=== PATIENT | male | born 1975 | race Caucasian/White ===

== ENCOUNTER 2017-08-30 20:35 | Emergency (ER) | payer MEDICAID, OTHER ==
[~2017-08-30] VITALS: Ht 170.2 cm; Wt 120.2 kg
[~2017-08-30 20:35] MED LIST: IBUP-1958 PO
--- NOTE | 2017-08-30 22:05 | NUR ---
DR JAYNE MATAMOROS MD AT BEDSIDE FOR MSE.
--- NOTE | 2017-08-30 22:29 | NUR ---
Patient discharged to home in stable conditon. Written and verbal after care instructions given. Patient verbalizes understanding of instructions. Pt ambulated from ER w/ steady gait. No distress noted. Pt took all personal belongings.
[2017-08-30 22:31] VITALS: BP 132/84
== END 2017-08-30 22:31 | disposition home or self-care (01) ==
LOC: ER 20:40
DX: H00.021 Hordeolum internum right upper eyelid (principal); K14.0 Glossitis; G89.29 Other chronic pain; M54.9 Dorsalgia, unspecified; F17.200 Nicotine dependence, unspecified, uncomplicated; Z79.1 Long term (current) use of non-steroidal anti-inflammatories (NSAID)
CPT/HCPCS: 99283; A4663

== ENCOUNTER 2017-10-02 10:34 | Emergency (ER) | payer OTHER ==
[~2017-10-02] VITALS: Ht 170.2 cm; Wt 114.8 kg
== END 2017-10-02 11:00 | disposition home or self-care (01) ==
LOC: ER 10:34
DX: G89.29 Other chronic pain (principal); M54.9 Dorsalgia, unspecified; H01.006 Unspecified blepharitis left eye, unspecified eyelid; H01.001 Unspecified blepharitis right upper eyelid; F17.200 Nicotine dependence, unspecified, uncomplicated
CPT/HCPCS: A4663

== ENCOUNTER 2021-04-20 07:51 | Inpatient (IN) | payer OTHER ==
[~2021-04-20] VITALS: Ht 170.2 cm; Wt 131.5 kg
--- NOTE | 2021-04-20 08:10 | NUR ---
Dr Constantino at the bedside for MSE.
[2021-04-20] MEDS ORDERED: PANTOPRAZOLE SODIUM 40 MG TABLET.DR PO ONE ×2 (08:15→08:28)
[2021-04-20] MEDS ORDERED: MAG HYDROX/AL HYDROX/SIMETH 30 ML LIQUID UDC PO ONE (08:15)
[2021-04-20] MEDS ORDERED: LIDOCAINE VISCUS 2% 15 ML UDC MM ONE (08:15)
[2021-04-20 08:25] LABS: HEMATOCRIT 46.8 % (36.7-47.1); MEAN CORPUSCULAR HEMOGLOBIN 31.7 uug (23.8-33.4); MEAN CORPUSCULAR VOLUME 94.3 fL (73.0-96.2); PLATELET COUNT (AUTO) 282 K/uL (152-348)
[2021-04-20] MEDS ORDERED: LIDOCAINE VISCUS 2% 15 ML UDC ONE (08:27)
[2021-04-20] MEDS ORDERED: MAG HYDROX/AL HYDROX/SIMETH 30 ML LIQUID UDC ONE (08:28)
[2021-04-20 08:36] LABS: *BILIRUBIN,URIN NEGATIVE (NEGATIVE); *BLOOD, URINE NEGATIVE (NEGATIVE); *CLARITY,URINE CLEAR (CLEAR); *COLOR,URINE YELLOW (YELLOW); *KETONES,URINE 1+ (NEGATIVE); *UROBILINOGEN,URINE 0.2 E.U./dl (NORMAL); LEUKOCYTE ESTERASE ,URINE NEGATIVE (NEGATIVE); NITRITE, URINE NEGATIVE (NEGATIVE); PH,URINE 7.5 (5.0-8.0); UGLUCOSE NEGATIVE (NEGATIVE)
[2021-04-20 08:49] LABS: ALANINE AMINOTRANSFERASE 181 U/L (16-63); ALKALINE PHOSPHATASE 68 U/L (50-136); ASPARTATE AMINOTRANSFERASE 75 U/L (15-37); BILIRUBIN,DIRECT 0.2 mg/dL (0.0-0.2); BILIRUBIN,TOTAL 0.8 mg/dL (0.2-1.0); CARBON DIOXIDE 28 mmol/L (21-32); CHLORIDE 101 mmol/L (98-107); CREATININE 1.1 mg/dL (0.6-1.3); GLUCOSE 87 mg/dL (74-106); LIPASE 414 U/L (73-393); POTASSIUM 3.8 mmol/L (3.5-5.1); TOTAL PROTEIN, SERUM 7.1 g/dL (6.4-8.2); UREA NITROGEN, BLOOD 7 mg/dL (7-18)
[2021-04-20] MEDS ORDERED: IV NORMAL SALINE 250 ML IV ONE (09:13)
[2021-04-20] MEDS ORDERED: SWABABLE VALVE TRANSFER SET EA MC ONE (09:13)
[2021-04-20] MEDS ORDERED: IOHEXOL 350 100 ML INFUS..BTL ONE (09:13)
--- NOTE | 2021-04-20 09:21 | NUR ---
Pt signed consent for IV contrasted CT. Placed in the chart.
--- NOTE | 2021-04-20 09:22 | NUR ---
Pt out of ER for CT.
--- NOTE | 2021-04-20 09:40 | NUR ---
Pt back from CT, resting in bed.
[2021-04-20] MEDS ORDERED: LABETALOL HCL 100 MG/20 ML VIAL IV ONE (09:45)
[2021-04-20] MEDS ORDERED: LABETALOL HCL 100 MG/20 ML VIAL ONE (09:56)
[2021-04-20] MEDS ORDERED: ASPIRIN 325 MG TABLET PO ONE (10:30)
[2021-04-20] MEDS ORDERED: ASPIRIN 325 MG TABLET ONE (10:36)
--- NOTE | 2021-04-20 11:35 | NUR ---
SHILOH WEATHERS spoke to Staci Hathaway NP for tele admit.
--- NOTE | 2021-04-20 12:09 | NUR ---
Patient is resting comfortably in bed with eyes closed, NAD noted.
[2021-04-20] MEDS ORDERED: TEMAZEPAM 15 MG CAPSULE PO PRN (12:30)
[2021-04-20] MEDS ORDERED: ACETAMINOPHEN 325 MG TABLET PO PRN (12:30)
[2021-04-20] MEDS ORDERED: HYDROCODONE/APAP 10-325 MG TABLET PO PRN (12:30)
[2021-04-20] MEDS ORDERED: REMEDY ESSENTIAL ZINC PASTE 113 GM TP PRN (12:30)
[2021-04-20] MEDS ORDERED: ONDANSETRON 4 MG/2 ML VIAL IV PRN (12:30)
[2021-04-20] MEDS ORDERED: NITROGLYCERIN 0.4 MG/TAB BOTTLE SL PRN (12:30)
[2021-04-20] MEDS ORDERED: HYDROMORPHONE 1 MG/1 ML DISP.SYRIN IV PRN ×2 (12:30→18:15)
[2021-04-20] MEDS ORDERED: MAGNESIUM HYDROXIDE 30 ML LIQUID UDC PO PRN (12:30)
--- NOTE | 2021-04-20 12:50 | NUR ---
ADMITTED FROM HOME VIA ER A 45 Y.O MALE C/O ABDOMINAL PAIN X5 DAYS, ALERT AND ORIENTED X3, ABLE TO PARTICIPATE WELL ON ADMISSION ASSESSMENT. DENIES CHEST PAIN OR SOB UPON ARRIVAL IN ROOM , STILL C/O ANTERIOR LOWER ABDOMINAL PAIN, DENIES N/V. SR/ST ON MONITOR
[2021-04-20] MEDS ORDERED: BENA20TA9 PO (13:01)
--- NOTE | 2021-04-20 14:27 | NUR ---
SEEN BY HOSPITALIST UPON COMING UP IN ROOM SEE NOTES.
[2021-04-20 16:40] VITALS: BP 137/83
[2021-04-20] MEDS: BENAZEPRIL HCL 20 MG TABLET PO SCH (16:46)
--- NOTE | 2021-04-20 19:30 | NUR ---
Received pt awake, alert and orientedx4. Pt in no acute distress. Iv intact. Family at bedside. Safety and comfort provided. Will continue to monitor.
[2021-04-20 20:12] VITALS: BP 147/82
--- NOTE | 2021-04-20 23:07 | NUR ---
Notify environment coordinator regarding pt requesting for cpap . Pt stated he uses cpap for his obstructive sleep apnea at home. Gabo Hathaway Np ordered for pt to have cpap. RT notified.
--- NOTE | 2021-04-20 23:42 | NUR ---
Restoril prn given to pt for sleep as per pt request. Pt tolerated it well. Will continue to monitor.
--- NOTE | 2021-04-20 23:57 | NUR ---
PATIENT WEARS CPAP MACHINE AT HOME, WITH NASAL MASK OR PRONGS, PATIENT EXPLAINED WE ONLY HAVE FULL MASK TO WEAR, HE SAID HE WOULD TRY, PT PLACED ON CPAP MACHINE WITH 8CM, WITH XL MASK, X 5 MINS, SAID HE GETS ANXIOUS AND SLIGHTLY INCREASE WORK OF BREATHING WITH MASK, HE SAID HE CANT WEAR IT NOW, RT SUGGEST THAT PATIENTS BRINGS HIS OWN MASK FROM HOME, SAT 96% ON ROOM AIR, NURSE NOTIFIED .Shi STEEN RCP Addendum: 04/21/21 at 0000 by SKYLER STEEN RT Amended: Links added.
[2021-04-21 00:53] VITALS: BP 112/55
[2021-04-21 04:12] VITALS: BP 103/60
--- NOTE | 2021-04-21 05:38 | NUR ---
Pt slept intermittently. Pt in no acute distress. Iv intact. Pt vital signs within normal limit. Pt on sinus rhythm.Safety and comfort provided.All needs are ,et. Will endorse to incoming nurse for continuity of care.
[2021-04-21 06:46] LABS: HEMATOCRIT 46.7 % (36.7-47.1); MEAN CORPUSCULAR VOLUME 94.8 fL (73.0-96.2); PLATELET COUNT (AUTO) 282 K/uL (152-348)
[2021-04-21] MEDS ORDERED: PANTOPRAZOLE SODIUM 40 MG TABLET.DR PO SCH (07:00)
--- NOTE | 2021-04-21 07:40 | NUR ---
Received awake sitting at edge of bed oriented x4. Denies pain or sob. Stated he's not used to sleeping away from home due to needs his own pillows and bed. No acute distress. No signs of infiltration on Iv site. Patient is comfortable. Safety maintained. Call light in reach.
[2021-04-21 08:00] LABS: CREATININE 1.1 mg/dL (0.6-1.3); MAGNESIUM 2.2 mg/dL (1.8-2.4); PHOSPHOROUS 3.3 mg/dL (2.5-4.9); POTASSIUM 3.5 mmol/L (3.5-5.1)
[2021-04-21 08:34] VITALS: BP 102/49
[2021-04-21] MEDS: BENAZEPRIL HCL 20 MG TABLET PO SCH (08:38)
[2021-04-21 08:49] LABS: THYROID STIMULATING HORMONE 1.043 mIU/mL (0.358-3.740)
[2021-04-21] MEDS ORDERED: ASPIRIN EC 81 MG TABLET.DR PO SCH (09:00)
[2021-04-21] MEDS ORDERED: PANT40TA2 PO (10:15)
[2021-04-21 12:00] VITALS: BP 119/72
--- NOTE | 2021-04-21 13:23 | NUR ---
Patient's family has all his medications and verified with Ortega at pharmacy no meds at pharmacy.
--- NOTE | 2021-04-21 13:50 | NUR ---
Discharge instructions relayed to the patient verbalized understanding. Iv removed no bleeding noted. Denies sob or chest pain.
--- NOTE | 2021-04-21 14:15 | NUR ---
Discharge to home via private car in stable condition.
== END 2021-04-21 14:15 | disposition home or self-care (01) | DRG 190 ==
LOC: ER 07:55 → TELE3 12:45 → MEDSURG3 04-21 11:00
PROVIDERS: ADMIT Nurse Practitioner Acute Care; ATTEND Nurse Practitioner Acute Care
DX: I25.10 Atherosclerotic heart disease of native coronary artery without angina pectoris (principal); I21.A1 Myocardial infarction type 2; K85.90 Acute pancreatitis without necrosis or infection, unspecified; I11.9 Hypertensive heart disease without heart failure; K26.9 Duodenal ulcer, unspecified as acute or chronic, without hemorrhage or perforation; E78.5 Hyperlipidemia, unspecified; F17.210 Nicotine dependence, cigarettes, uncomplicated; E66.01 Morbid (severe) obesity due to excess calories; Z68.42 Body mass index [BMI] 45.0-49.9, adult; Z20.822 Contact with and (suspected) exposure to COVID-19; G89.29 Other chronic pain; M54.9 Dorsalgia, unspecified
CPT/HCPCS: 36415; 71045; 71275; 73080; 83690; 83735; 84100; 84443; 84484; 85025; 93005; 94660; A4663; G0378; J1170; J3490; J7050; Q9967

== ENCOUNTER 2021-04-26 07:32 | Inpatient (IN) | payer OTHER ==
[~2021-04-26] VITALS: Ht 170.2 cm; Wt 129.3 kg
[~2021-04-26 07:32] MED LIST changes: +BENA20TA9 PO; -IBUP-1958 PO; +PANT40TA2 PO
--- NOTE | 2021-04-26 07:54 | NUR ---
Pending MD evaluation, patient is AOX4, calm & breathing easily, NAD, c/o abdominal pains, skin warm & dry.
--- NOTE | 2021-04-26 07:56 | NUR ---
MD@bedside, medical screening exam in progress
--- NOTE | 2021-04-26 08:10 | NUR ---
lead maintenance technician called 08:09am
[2021-04-26 08:29] LABS: MEAN CORPUSCULAR HEMOGLOBIN 31.4 uug (23.8-33.4); MEAN CORPUSCULAR VOLUME 93.5 fL (73.0-96.2); PLATELET COUNT (AUTO) 296 K/uL (152-348)
[2021-04-26 08:30] LABS: CARBON DIOXIDE 27 mmol/L (21-32); CHLORIDE 98 mmol/L (98-107); CREATININE 1.1 mg/dL (0.6-1.3); GLUCOSE 89 mg/dL (74-106); POTASSIUM 3.9 mmol/L (3.5-5.1); UREA NITROGEN, BLOOD 7 mg/dL (7-18)
[2021-04-26 08:39] LABS: ALANINE AMINOTRANSFERASE 236 U/L (16-63); ALKALINE PHOSPHATASE 66 U/L (50-136); ASPARTATE AMINOTRANSFERASE 78 U/L (15-37); BILIRUBIN,DIRECT 0.2 mg/dL (0.0-0.2); BILIRUBIN,TOTAL 0.8 mg/dL (0.2-1.0); TOTAL PROTEIN, SERUM 7.3 g/dL (6.4-8.2)
[2021-04-26 08:40] LABS: LIPASE 1689 U/L (73-393)
[2021-04-26 09:20] LABS: *BILIRUBIN,URIN NEGATIVE (NEGATIVE); *BLOOD, URINE NEGATIVE (NEGATIVE); *CLARITY,URINE CLEAR (CLEAR); *COLOR,URINE YELLOW (YELLOW); *KETONES,URINE 1+ (NEGATIVE); *UROBILINOGEN,URINE 0.2 E.U./dl (NORMAL); LEUKOCYTE ESTERASE ,URINE NEGATIVE (NEGATIVE); NITRITE, URINE NEGATIVE (NEGATIVE); UGLUCOSE NEGATIVE (NEGATIVE)
[2021-04-26] MEDS ORDERED: METOCLOPRAMIDE HCL 10 MG/2 ML VIAL IV ONE (09:30)
[2021-04-26] MEDS ORDERED: KETOROLAC TROMETHAMINE 15 MG INJ IVP ONE (09:30)
[2021-04-26] MEDS ORDERED: METOCLOPRAMIDE HCL 10 MG/2 ML VIAL ONE (09:38)
[2021-04-26] MEDS ORDERED: KETOROLAC TROMETHAMINE 15 MG INJ ONE (09:38)
[2021-04-26 09:39] LABS: BACTERIA,URINE NONE SEEN /HPF (NONE SEEN); RBC,URINE NONE SEEN /HPF (0-3); SQUAMOUS EPITHELIAL CELL,UR NONE SEEN /HPF (NONE SEEN); WBC,URINE NONE SEEN /HPF (0-3)
[2021-04-26] MEDS ORDERED: IV NORMAL SALINE 250 ML IV ONE (09:48)
[2021-04-26] MEDS ORDERED: SWABABLE VALVE TRANSFER SET EA MC ONE (09:48)
[2021-04-26] MEDS ORDERED: IOHEXOL 300MG/ML 100 ML INFUS..BTL ONE (09:48)
--- NOTE | 2021-04-26 09:53 | NUR ---
Patient ambulated to bathroom 2x with steady gait.
--- NOTE | 2021-04-26 10:33 | NUR ---
Patient is resting comfortably on gurney with eyes closed. Patient reported marked decreased in abdominal pains expressed, about 1/10 pain scale@this time.
--- NOTE | 2021-04-26 10:57 | NUR ---
MD@bedside discussing plan of care with patient.
--- NOTE | 2021-04-26 11:04 | NUR ---
ER registration/admitting staff Luz Elena notified re: plan to admit
[2021-04-26] MEDS ORDERED: DEXAMETHASONE SOD PHOSPHATE 4 MG INJ ONE (11:25)
[2021-04-26] MEDS ORDERED: ONDANSETRON 4 MG/2 ML VIAL ONE ×2 (11:25→12:14)
[2021-04-26] MEDS ORDERED: GLYCOPYRROLATE 0.2 MG/ML VIAL ONE ×3 (11:25)
[2021-04-26] MEDS ORDERED: CEFAZOLIN 1 G VIAL ONE ×2 (11:25)
[2021-04-26] MEDS ORDERED: SUCCINYLCHOLINE CHLORIDE 200 MG/10 ML VIAL ONE (11:25)
[2021-04-26] MEDS ORDERED: LIDOCAINE-MPF 2% 5 ML VIAL ONE (11:25)
[2021-04-26] MEDS ORDERED: NEOSTIGMINE METHYLSULFATE 10 MG/10 ML VIAL ONE (11:25)
[2021-04-26] MEDS ORDERED: PROPOFOL 200 MG/20 ML BOTTLE ONE ×2 (11:25)
--- NOTE | 2021-04-26 11:41 | NUR ---
Informed MD RE latest vitals BP-171/110 AL-68 RR-19 T-98 SPO2-98% RA PA-09/17
[2021-04-26] MEDS ORDERED: MORPHINE SULFATE 4 MG/1 ML DISP.SYRIN IV ONE (11:45)
[2021-04-26] MEDS ORDERED: ONDANSETRON 4 MG/2 ML VIAL IV ONE (11:45)
[2021-04-26] MEDS ORDERED: hydrALAZINE HCL 20 MG/1 ML VIAL IV ONE (11:45)
[2021-04-26] MEDS ORDERED: MORPHINE SULFATE 4 MG/1 ML DISP.SYRIN ONE (12:11)
[2021-04-26] MEDS ORDERED: hydrALAZINE HCL 20 MG/1 ML VIAL ONE (12:11)
--- NOTE | 2021-04-26 12:30 | NUR ---
"OK to admit." per ER registration/admitting staff Luz Elena said. notified.
--- NOTE | 2021-04-26 13:20 | NUR ---
Patient admitted to 3RD FLOOR room 304 , under care of Dr. Mariusz Rain .Belongings List completed. MRSA swab collected.
--- NOTE | 2021-04-26 13:30 | NUR ---
Patient admitted to room 304 .vs are stable call light with in reach pt isaxox4 md notified for the admission orders
[2021-04-26 13:41] VITALS: BP 132/83
[2021-04-26] MEDS ORDERED: ONDANSETRON 4 MG/2 ML VIAL IV PRN (14:15)
[2021-04-26] MEDS: IV NS 1000 ML 1,000 ML IV PRN ×2 (14:51→20:45)
[2021-04-26] MEDS: PIPERACILLIN SODIUM/TAZOBACTAM 3.375 G in IV DEXTROSE 5% 100 ML IV SCH ×2 (14:59→23:50)
[2021-04-26] MEDS ORDERED: PIPERACILLIN SODIUM/TAZOBACTAM 4.5 G in IV DEXTROSE 5% 50 ML IV SCH (15:00)
[2021-04-26] MEDS: MORPHINE SULFATE 2 MG/1 ML DISP.SYRIN IV PRN ×2 (15:35→20:45)
[2021-04-26 16:09] VITALS: BP 146/87
[2021-04-26 20:14] VITALS: BP 138/69
[2021-04-27] MEDS: MORPHINE SULFATE 2 MG/1 ML DISP.SYRIN IV PRN ×4 (01:56→21:09)
[2021-04-27 04:20] VITALS: BP 158/84
--- NOTE | 2021-04-27 06:02 | NUR ---
Slept intermittently with CPAP in place. Able to make needs known. C/o abd pain periodically that is relieved by Morphine. IV site intact. Comfort maintained throughout shift, will endorse to day shift.
[2021-04-27] MEDS: PANTOPRAZOLE SODIUM 40 MG VIAL IV SCH (06:17)
[2021-04-27] MEDS: PIPERACILLIN SODIUM/TAZOBACTAM 3.375 G in IV DEXTROSE 5% 100 ML IV SCH ×3 (06:17→23:46)
[2021-04-27 06:37] LABS: HEMATOCRIT 46.2 % (36.7-47.1); MEAN CORPUSCULAR HEMOGLOBIN 31.1 uug (23.8-33.4); MEAN CORPUSCULAR VOLUME 93.9 fL (73.0-96.2); PLATELET COUNT (AUTO) 285 K/uL (152-348)
[2021-04-27] MEDS: IV NS 1000 ML 1,000 ML IV PRN ×2 (06:48→14:17)
[2021-04-27 06:56] LABS: CREATININE 1.1 mg/dL (0.6-1.3); MAGNESIUM 1.9 mg/dL (1.8-2.4); PHOSPHOROUS 3.1 mg/dL (2.5-4.9); POTASSIUM 3.8 mmol/L (3.5-5.1)
[2021-04-27 07:02] LABS: THYROID STIMULATING HORMONE 0.774 mIU/mL (0.358-3.740)
[2021-04-27 11:49] VITALS: BP 151/86
[2021-04-27 15:59] VITALS: BP 141/68
[2021-04-27 20:03] VITALS: BP 153/93
[2021-04-28] MEDS: IV NS 1000 ML 1,000 ML IV PRN ×4 (01:00→18:45)
[2021-04-28] MEDS: MORPHINE SULFATE 2 MG/1 ML DISP.SYRIN IV PRN ×3 (01:55→20:26)
[2021-04-28 04:03] VITALS: BP 155/85
[2021-04-28 04:22] LABS: HEMATOCRIT 47.2 % (36.7-47.1); MEAN CORPUSCULAR HEMOGLOBIN 31.1 uug (23.8-33.4); MEAN CORPUSCULAR VOLUME 92.9 fL (73.0-96.2); PLATELET COUNT (AUTO) 288 K/uL (152-348)
[2021-04-28 04:33] LABS: BILIRUBIN,TOTAL 0.7 mg/dL (0.2-1.0); PHOSPHOROUS 3.4 mg/dL (2.5-4.9); POTASSIUM 3.7 mmol/L (3.5-5.1); TOTAL PROTEIN, SERUM 6.9 g/dL (6.4-8.2)
[2021-04-28] MEDS: PIPERACILLIN SODIUM/TAZOBACTAM 3.375 G in IV DEXTROSE 5% 100 ML IV SCH ×3 (06:14→22:46)
[2021-04-28] MEDS: PANTOPRAZOLE SODIUM 40 MG VIAL IV SCH (06:14)
--- NOTE | 2021-04-28 07:11 | NUR ---
Slept well. CPAP in place, tolerates well. C?O abdominal pain, Morphine 2mg IV provided as ordered PRN. IV NS infusing to left FA IV at 20cc/hr. Zosyn IV continued, no adverse reaction. Teaching provided on lap cholecystectomy. Is able to ambulate to use toilet. All needs attended.
[2021-04-28 11:41] VITALS: BP 151/90
[2021-04-28 16:13] VITALS: BP 168/74
[2021-04-28 20:00] VITALS: BP 158/80
[2021-04-28] MEDS: ZOLPIDEM 5 MG TABLET PO PRN (22:59)
[2021-04-29 04:00] VITALS: BP 155/75
[2021-04-29] MEDS ORDERED: MORPHINE SULFATE 2 MG/1 ML DISP.SYRIN ONE (04:52)
[2021-04-29] MEDS: MORPHINE SULFATE 2 MG/1 ML DISP.SYRIN IV PRN (04:58)
[2021-04-29] MEDS: IV NS 1000 ML 1,000 ML IV PRN ×2 (05:00)
--- NOTE | 2021-04-29 05:20 | NUR ---
Patient slept well. Continues to have pain to mid abdomen, Morphine 2mg provided as needed. Sharee provided PRN for sleep aid.- effective. Patient NPO this shift.
[2021-04-29] MEDS: PANTOPRAZOLE SODIUM 40 MG VIAL IV SCH (06:08)
[2021-04-29] MEDS: PIPERACILLIN SODIUM/TAZOBACTAM 3.375 G in IV DEXTROSE 5% 100 ML IV SCH ×3 (06:08→22:07)
[2021-04-29 06:23] LABS: HEMATOCRIT 46.7 % (36.7-47.1); MEAN CORPUSCULAR HEMOGLOBIN 30.9 uug (23.8-33.4); MEAN CORPUSCULAR VOLUME 93.1 fL (73.0-96.2); PLATELET COUNT (AUTO) 286 K/uL (152-348)
[2021-04-29 06:38] LABS: BILIRUBIN,TOTAL 0.8 mg/dL (0.2-1.0); CREATININE 0.9 mg/dL (0.6-1.3); MAGNESIUM 1.9 mg/dL (1.8-2.4); POTASSIUM 3.9 mmol/L (3.5-5.1); TOTAL PROTEIN, SERUM 6.8 g/dL (6.4-8.2)
[2021-04-29] MEDS ORDERED: BUPIVACAINE/EPI PF 0.25% 30 ML VIAL ONE (06:59)
[2021-04-29] MEDS ORDERED: LIDOCAINE HCL 1% 20 ML VIAL ONE (06:59)
--- NOTE | 2021-04-29 08:06 | NUR ---
PT WENT TO OR VIA BED FOR SURGERY
[2021-04-29] MEDS ORDERED: FENTANYL CITRATE 250 MCG/5 ML AMPUL ONE (08:44)
[2021-04-29] MEDS ORDERED: MIDAZOLAM HCL 2 MG/2 ML VIAL ONE (08:44)
[2021-04-29] MEDS ORDERED: ROCURONIUM BROMIDE 50 MG/5 ML VIAL ONE (08:44)
[2021-04-29] MEDS ORDERED: HYDROMORPHONE 1 MG/1 ML DISP.SYRIN ONE (10:58)
[2021-04-29] MEDS ORDERED: KETOROLAC TROMETHAMINE 30 MG INJ ONE (10:59)
--- NOTE | 2021-04-29 12:00 | NUR ---
pt received from recovery room via bed in stable condition.vs are stable call light with in reach
[2021-04-29] MEDS: IV LACTATED RINGERS SOLUTION 1,000 ML IV PRN ×2 (12:27→22:13)
[2021-04-29] MEDS: GABAPENTIN 300 MG CAPSULE PO SCH ×2 (13:29→21:32)
[2021-04-29] MEDS: IBUPROFEN 800 MG TABLET PO SCH ×2 (13:29→21:32)
[2021-04-29] MEDS: ACETAMINOPHEN 325 MG TABLET PO SCH ×2 (13:29→21:32)
[2021-04-29 16:00] VITALS: BP 118/73
--- NOTE | 2021-04-29 19:30 | NUR ---
Received pt awake,alert and orientedx4. at bedside.Iv intact. Pt in no acute distress. Safety and comfort provided. Will continue to monitor.
[2021-04-29 19:58] VITALS: BP 146/84
[2021-04-29] MEDS: ZOLPIDEM 5 MG TABLET PO PRN (22:13)
[2021-04-30] MEDS: MORPHINE SULFATE 2 MG/1 ML DISP.SYRIN IV PRN (01:07)
--- NOTE | 2021-04-30 02:02 | NUR ---
PATIENT BACK ON CPAP MACHINE 23:10 - WITH HIS OWN NASAL PILLOWS FOR UNDER NOSE, CPAP 10, FIO2N@ 28%, DOING WELL. Shi STEEN RCP Addendum: 04/30/21 at 0203 by SKYLER STEEN RT Amended: Links added.
[2021-04-30 04:00] VITALS: BP 119/70
[2021-04-30] MEDS: GABAPENTIN 300 MG CAPSULE PO SCH ×3 (05:43→20:17)
[2021-04-30] MEDS: IBUPROFEN 800 MG TABLET PO SCH (05:43)
[2021-04-30] MEDS: ACETAMINOPHEN 325 MG TABLET PO SCH ×3 (05:43→20:17)
[2021-04-30] MEDS: PANTOPRAZOLE SODIUM 40 MG VIAL IV SCH (06:08)
[2021-04-30] MEDS: PIPERACILLIN SODIUM/TAZOBACTAM 3.375 G in IV DEXTROSE 5% 100 ML IV SCH ×2 (06:08→14:25)
--- NOTE | 2021-04-30 06:25 | NUR ---
Pt slept intermittently. Pt in no acute distress. . Iv intact. Prescribed medication given and pt tolerated it well. PT abdominal dressing sites intact , clean and dry. Safety and comfort provided. All needs are met. Vital signs within normal limit. Will endorse to incoming nurse for continuity of care.
--- NOTE | 2021-04-30 07:35 | NUR ---
Received patient report from PM nurse. Arrived to patient's room sleeping comfortably. IV site intact with bed in lowest position. Patient states there is no pain but question about discharge from facility. Will follow up with Dr. Campos regarding patient's discharge.
[2021-04-30 08:43] LABS: HEMATOCRIT 44.1 % (36.7-47.1); MEAN CORPUSCULAR HEMOGLOBIN 30.7 uug (23.8-33.4); MEAN CORPUSCULAR VOLUME 92.8 fL (73.0-96.2); PLATELET COUNT (AUTO) 294 K/uL (152-348)
[2021-04-30 08:54] LABS: CREATININE 1.3 mg/dL (0.6-1.3); MAGNESIUM 1.8 mg/dL (1.8-2.4); PHOSPHOROUS 3.7 mg/dL (2.5-4.9); POTASSIUM 4.1 mmol/L (3.5-5.1); TOTAL PROTEIN, SERUM 6.4 g/dL (6.4-8.2)
[2021-04-30 11:11] VITALS: BP 135/81
--- NOTE | 2021-04-30 11:42 | NUR ---
Dressing change and clean done to patient's tahira on abdomen.
[2021-04-30 16:09] VITALS: BP 159/101
--- NOTE | 2021-04-30 16:15 | NUR ---
Patient's IV line infiltrated. Attempted to start new line but unsuccessful. Spoke to Dr. Campos regarding possible midline insertion. Dr. Campos recommends Keflex PO. Order placed for Keflex 500mg PO q8h for 4 days.
--- NOTE | 2021-04-30 19:41 | NUR ---
Received patient sitting in the chair. AAOx4. In no apparent distress. Denies any pain or SOB. Encourage to use incentive spirometer at bedside. Dressing on surgical site intact, dry and clean. Needs assessed and attended to. Safety measure initiated and call light within reached.
[2021-04-30 19:51] VITALS: BP 162/99
[2021-04-30] MEDS: BENAZEPRIL HCL 20 MG TABLET PO SCH (20:13)
--- NOTE | 2021-04-30 20:29 | NUR ---
Patient with no IV present. Placed IV on left AC #20G.
[2021-04-30] MEDS ORDERED: ATORVASTATIN 20 MG TABLET PO SCH (21:00)
[2021-04-30] MEDS: CEphaleXIN 500 MG CAPSULE PO SCH (21:06)
[2021-05-01] MEDS: MORPHINE SULFATE 2 MG/1 ML DISP.SYRIN IV PRN (03:00)
[2021-05-01 04:17] VITALS: BP 162/93
[2021-05-01 05:10] VITALS: BP 118/60
[2021-05-01] MEDS: CEphaleXIN 500 MG CAPSULE PO SCH ×2 (05:33→13:16)
[2021-05-01] MEDS: GABAPENTIN 300 MG CAPSULE PO SCH ×2 (05:33→13:16)
[2021-05-01] MEDS: ACETAMINOPHEN 325 MG TABLET PO SCH ×2 (05:33→13:16)
[2021-05-01] MEDS: PANTOPRAZOLE SODIUM 40 MG VIAL IV SCH (06:08)
[2021-05-01 06:28] VITALS: BP 159/90
--- NOTE | 2021-05-01 06:33 | NUR ---
AAOx4. In no apparent distress. Denies any SOB. CPAP used during the night. Morphine 2mg given via IV for complain of pain on surgical site and effective. Surgical site with dressing clean and dry. IV site on left AC intact and patent. No adverse effect noted from PO antibiotic. Needs attended to and met. Safety measure maintained and call light within reached.
[2021-05-01] MEDS: BENAZEPRIL HCL 20 MG TABLET PO SCH (09:00)
[2021-05-01] MEDS ORDERED: VALSARTAN 80 MG TABLET PO SCH (09:30)
[2021-05-01 11:46] VITALS: BP 102/43
[2021-05-01] MEDS ORDERED: BENA20TA9 PO (14:21)
[2021-05-01] MEDS ORDERED: CEPH500C2 PO (14:21)
[2021-05-01] MEDS ORDERED: ATOR20TA PO (14:21)
--- NOTE | 2021-05-01 15:35 | NUR ---
Patient discharged from unit at 1530. IV site removed. ID band removed. Discharge education provided to patient and patient's sister.
[2021-05-02] MEDS ORDERED: PANTOPRAZOLE SODIUM 40 MG TABLET.DR PO SCH (07:00)
== END 2021-05-01 15:30 | disposition home or self-care (01) | DRG 263 ==
LOC: ER 07:35 → MEDSURG3 13:24
PROVIDERS: ATTEND Internal Medicine
PROC: 0FT44ZZ Resection of Gallbladder, Percutaneous Endoscopic Approach (ICD-10-PCS; principal; 2021-04-29)
DX: K85.10 Biliary acute pancreatitis without necrosis or infection (principal); K80.00 Calculus of gallbladder with acute cholecystitis without obstruction; E78.5 Hyperlipidemia, unspecified; E66.01 Morbid (severe) obesity due to excess calories; F17.210 Nicotine dependence, cigarettes, uncomplicated; Z68.41 Body mass index [BMI] 40.0-44.9, adult; K66.0 Peritoneal adhesions (postprocedural) (postinfection); I10 Essential (primary) hypertension; M77.8 Other enthesopathies, not elsewhere classified; R77.8 Other specified abnormalities of plasma proteins; I51.7 Cardiomegaly; K86.1 Other chronic pancreatitis; G89.29 Other chronic pain
CPT/HCPCS: 36415; 83690; 83735; 84100; 84443; 84484; 85025; 85730; 93005; 94660; 94760; A4663; C9113; G0378; J0330; J0360; J0690; J1100; J1170; J1885; J2250; J2270; J2405; J2543; J2765; J3010; J3490; J7030; J7040; J7050; J7060; J7070; Q9967

== ENCOUNTER 2021-08-06 12:35 | Emergency (ER) | payer OTHER ==
[~2021-08-06] VITALS: Ht 170.2 cm; Wt 113.4 kg
[~2021-08-06 12:35] MED LIST changes: +ATOR20TA PO; +CEPH500C2 PO
[2021-08-06] MEDS ORDERED: NEOMY/BACITRA/POLYMYXIN B OINT UD PACKET TP ONE (12:52)
--- NOTE | 2021-08-06 13:00 | NUR ---
Pt lynn to room 2a by triage. Pt placed on gurney in pos of comfort, connected to monitor and initial VSS, Pt NSR with inverted t and poss slighty ST depression. Pt denies any pain, sob, or emesis, pt states that he feels dizzy and was mildly nauseated earlier. Pt has good distal pulses x4ext with good muscle tone and strength, pt works out alot and is considered buff. lungs ctab, no trach dev, no jvd, no dental caries or lesions, PERRLA, NAD, Pt states that he felt "weird" all day long, and his employer sent him home, but he says hes feeling much better now. wants to go home.
--- NOTE | 2021-08-06 13:05 | NUR ---
EDMD at bedside for eval of pt condition. 1 L NS IV fluid ordered along with some fluids. IV initiated and fluid NS bolus started
[2021-08-06] MEDS ORDERED: IV NORMAL SALINE 1000 ML BAG IV ONE (13:15)
--- NOTE | 2021-08-06 13:20 | NUR ---
XRtech at bedside for PCXR
[2021-08-06 13:58] LABS: MEAN CORPUSCULAR HEMOGLOBIN 28.2 uug (23.8-33.4); MEAN CORPUSCULAR VOLUME 82.8 fL (73.0-96.2); PLATELET COUNT (AUTO) 257 K/uL (152-348)
[2021-08-06 14:13] LABS: CARBON DIOXIDE 31 mmol/L (21-32); CHLORIDE 100 mmol/L (98-107); CREATININE 1.1 mg/dL (0.6-1.3); GLUCOSE 96 mg/dL (74-106); POTASSIUM 3.4 mmol/L (3.5-5.1); UREA NITROGEN, BLOOD 12 mg/dL (7-18)
[2021-08-06] MEDS ORDERED: IV NS 1000 ML 1,000 ML IV ONE (14:15)
[2021-08-06 15:18] LABS: *BILIRUBIN,URIN NEGATIVE (NEGATIVE); *BLOOD, URINE TRACE (NEGATIVE); *CLARITY,URINE CLEAR (CLEAR); *COLOR,URINE YELLOW (YELLOW); *KETONES,URINE NEGATIVE (NEGATIVE); *UROBILINOGEN,URINE 0.2 E.U./dl (NORMAL); LEUKOCYTE ESTERASE ,URINE 2+ (NEGATIVE); NITRITE, URINE NEGATIVE (NEGATIVE); PH,URINE 7.5 (5.0-8.0); UGLUCOSE NEGATIVE (NEGATIVE)
--- NOTE | 2021-08-06 15:30 | NUR ---
EDMD at bedside to discuss findings and pt dispo with pt.
[2021-08-06 15:35] LABS: *AMPHETAMINE, URINE NEGATIVE (NEGATIVE); *CANNABINOID, URINE NEGATIVE (NEGATIVE); *COCCAINE, URINE NEGATIVE (NEGATIVE); *OPIATE, URINE NEGATIVE (NEGATIVE); *PHENCYCLIDINE SCREEN,URINE NEGATIVE (NEGATIVE)
--- NOTE | 2021-08-06 15:45 | NUR ---
Pt given DC instructions and pt confirmed understanding of aftercare. all questions answered, IV removed and site dressed with 4x4s and tape. 1L NS bolus completed pt tolerated well. States he feels much better and wants to go home. EDMD went to bedside to discuss with pt since 1 more Liter of NS was ordered and about to be hung. Pt states that hell just go buy a huge bottle of gatoraid and drink it PO. Pt states that he has a previous engagement. EDMD agreed to prepare DC paperwork for pt dc home. VSS, PE WNL, NAD. No ns/sxof distress present.
[2021-08-06 17:00] LABS: BACTERIA,URINE MODERATE /HPF (NONE SEEN); SQUAMOUS EPITHELIAL CELL,UR FEW /HPF (NONE SEEN); WBC,URINE 50-80 /HPF (0-3)
[2021-08-06 20:29] VITALS: BP 128/82
== END 2021-08-06 15:45 | disposition home or self-care (01) ==
LOC: ER 12:35
DX: E86.0 Dehydration (principal); I10 Essential (primary) hypertension; G89.29 Other chronic pain; M54.9 Dorsalgia, unspecified; Z79.899 Other long term (current) drug therapy
CPT/HCPCS: 36415; 71045; 80048; 80307; 81001; 84484; 85025; 85730; 87077; 87086; 87186; 93005; 96360; 96361; 99285; J7040; A4663

== ENCOUNTER 2023-03-06 20:31 | Emergency (ER) | payer OTHER ==
[~2023-03-06] VITALS: Ht 170.2 cm; Wt 115.7 kg
[~2023-03-06 20:31] MED LIST changes: -CEPH500C2 PO; -PANT40TA2 PO
[2023-03-06] MEDS ORDERED: CLOT15CR5 TP (21:07)
[2023-03-06] MEDS ORDERED: DOXY-326 PO (21:07)
[2023-03-06 21:17] VITALS: BP 151/104; O2SAT 97
== END 2023-03-06 21:17 | disposition home or self-care (01) ==
LOC: ER 20:31
DX: L30.4 Erythema intertrigo (principal); L73.9 Follicular disorder, unspecified; I10 Essential (primary) hypertension; E78.5 Hyperlipidemia, unspecified; F17.200 Nicotine dependence, unspecified, uncomplicated; Z79.899 Other long term (current) drug therapy; Z60.2 Problems related to living alone
CPT/HCPCS: A4606; A4663

== ENCOUNTER 2023-03-19 21:16 | Emergency (ER) | payer OTHER ==
[~2023-03-19] VITALS: Ht 170.2 cm; Wt 115.7 kg
[~2023-03-19 21:16] MED LIST changes: +CLOT15CR5 TP; +DOXY-326 PO
[2023-03-19] MEDS ORDERED: CLOT15CR27 TP (21:45)
[2023-03-19] MEDS ORDERED: SULF1TAB48 PO (21:45)
[2023-03-19] MEDS ORDERED: SULFAMETH/TRIMETH 800/160 MG TABLET ONE (21:50)
[2023-03-19 21:52] VITALS: BP 162/95; O2SAT 96
[2023-03-19] MEDS: SULFAMETH/TRIMETH 800/160 MG TABLET PO ONE (21:52)
== END 2023-03-19 21:53 | disposition home or self-care (01) ==
LOC: ER 21:18
DX: L30.4 Erythema intertrigo (principal); E78.5 Hyperlipidemia, unspecified; F17.200 Nicotine dependence, unspecified, uncomplicated; Z79.899 Other long term (current) drug therapy
CPT/HCPCS: A4606; A4663

== ENCOUNTER 2023-06-16 12:54 | Emergency (ER) | payer OTHER ==
[~2023-06-16] VITALS: Ht 170.2 cm; Wt 113.4 kg
[~2023-06-16 12:54] MED LIST changes: +CLOT15CR27 TP; +IBUP-1953 PO; +SULF1TAB48 PO; +TRAM50TA2 PO
[2023-06-16 15:29] LABS: BASOPHILS % (AUTO) 0.3 % (0.0-2.0); DIFFERENTIAL COMMENT 0; EOSINOPHILS % (AUTO) 0.1 % (0.0-7.0); HEMATOCRIT 47.8 % (36.7-47.1); HEMOGLOBIN 17.2 g/dL (12.5-16.3); LYMPHOCYTES # (AUTO) 0.2 K/uL (0.8-4.8); LYMPHOCYTES % (AUTO) 2.4 % (20.5-51.5); MEAN CORPUSCULAR HEMOGLOBIN 32.7 uug (23.8-33.4); MEAN CORPUSCULAR HGB CONC 36 g/dL (32.5-36.3); MEAN CORPUSCULAR VOLUME 91.1 fL (73.0-96.2); MONOCYTES # (AUTO) 0.2 K/uL (0.1-1.30); MONOCYTES % (AUTO) 2.4 % (0.0-11.0); NEUTROPHILS % (AUTO) 94.8 % (38.5-71.5); PLATELET COUNT (AUTO) 196 K/uL (152-348); RED BLOOD CELL COUNT(AUTO) 5.25 MIL/uL (4.06-5.63); RED CELL DISTRIBUTION WIDTH 13.8 % (12.1-16.2); WHITE BLOOD COUNT (AUTO) 9.5 K/uL (3.6-10.2)
[2023-06-16 15:32] LABS: CALCIUM 8.5 mg/dL (8.5-10.1); CREATININE 1.1 mg/dL (0.6-1.3); POTASSIUM 3.2 mmol/L (3.5-5.1)
[2023-06-16 15:38] LABS: ALBUMIN 3.9 g/dL (3.4-5.0); BILIRUBIN,DIRECT 0.1 mg/dL (0.0-0.2); BILIRUBIN,TOTAL 0.8 mg/dL (0.2-1.0); TOTAL PROTEIN, SERUM 7.9 g/dL (6.4-8.2)
[2023-06-16] MEDS ORDERED: ONDANSETRON 4 MG/2 ML VIAL ONE (15:49)
[2023-06-16] MEDS: ONDANSETRON 4 MG/2 ML VIAL IV ONE (15:52)
[2023-06-16] MEDS: IV NORMAL SALINE 1000 ML BAG IV ONE (15:52)
[2023-06-16 16:34] LABS: *BILIRUBIN,URIN 1+ (NEGATIVE); *BLOOD, URINE NEGATIVE (NEGATIVE); *CLARITY,URINE CLEAR (CLEAR); *COLOR,URINE YELLOW (YELLOW); *KETONES,URINE TRACE (NEGATIVE); *PROTEIN,URINE 2+ (NEGATIVE); *UROBILINOGEN,URINE 0.2 E.U./dl (NORMAL); LEUKOCYTE ESTERASE ,URINE NEGATIVE (NEGATIVE); NITRITE, URINE NEGATIVE (NEGATIVE); UGLUCOSE NEGATIVE (NEGATIVE)
[2023-06-16] MEDS ORDERED: MAGNESIUM SULFATE/D5W 200 ML ONE (17:08)
[2023-06-16] MEDS ORDERED: POTASSIUM CHLORIDE 20 MEQ TAB.PRT.SR ONE (17:08)
[2023-06-16] MEDS ORDERED: KETOROLAC TROMETHAMINE 30 MG INJ ONE (17:08)
[2023-06-16] MEDS: POTASSIUM CHLORIDE 20 MEQ TAB.PRT.SR PO ONE (17:16)
[2023-06-16] MEDS: MAGNESIUM SULFATE/D5W 100 ML IV SCH (17:16)
[2023-06-16] MEDS: KETOROLAC TROMETHAMINE 30 MG INJ IVP ONE (17:16)
[2023-06-16 17:22] LABS: BACTERIA,URINE NONE SEEN /HPF (NONE SEEN); MUCUS,URINE MODERATE /LPF (0-FEW); SQUAMOUS EPITHELIAL CELL,UR NONE SEEN /HPF (NONE SEEN); WBC,URINE NONE SEEN /HPF (0-3)
[2023-06-16] MEDS ORDERED: ONDA4TAB11 PO (17:47)
[2023-06-16 18:41] VITALS: BP 137/84; TEMP 98.3; O2SAT 97
== END 2023-06-16 18:42 | disposition home or self-care (01) ==
LOC: ER 12:54
DX: R11.10 Vomiting, unspecified (principal); R19.7 Diarrhea, unspecified; E86.0 Dehydration; E87.6 Hypokalemia; E78.5 Hyperlipidemia, unspecified; F17.200 Nicotine dependence, unspecified, uncomplicated; Z79.899 Other long term (current) drug therapy
CPT/HCPCS: 36415; 83690; 85025; A4606; A4663; J1885; J2405; J3475; J7040

== ENCOUNTER 2023-07-18 06:27 | Emergency (ER) | payer OTHER ==
[~2023-07-18] VITALS: Ht 170.2 cm; Wt 113.4 kg
[~2023-07-18 06:27] MED LIST changes: +ONDA4TAB11 PO
[2023-07-18] MEDS ORDERED: AMLO10TA59 PO (06:48)
[2023-07-18] MEDS ORDERED: CLONIDINE HCL 0.1 MG TABLET ONE (06:59)
[2023-07-18] MEDS: CLONIDINE HCL 0.1 MG TABLET PO ONE (07:00)
[2023-07-18 07:16] LABS: BASOPHILS # (AUTO) 0.1 K/UL (0.0-0.2); BASOPHILS % (AUTO) 0.8 % (0.0-2.0); EOSINOPHILS # (AUTO) 0.2 K/uL (0.0-0.7); EOSINOPHILS % (AUTO) 2.6 % (0.0-7.0); HEMATOCRIT 46.6 % (36.7-47.1); HEMOGLOBIN 16.2 g/dL (12.5-16.3); LYMPHOCYTES % (AUTO) 13.8 % (20.5-51.5); MEAN CORPUSCULAR HGB CONC 35 g/dL (32.5-36.3); MEAN CORPUSCULAR VOLUME 91.9 fL (73.0-96.2); MONOCYTES # (AUTO) 0.5 K/uL (0.1-1.30); MONOCYTES % (AUTO) 6.4 % (0.0-11.0); NEUTROPHILS # (AUTO) 5.7 K/uL (1.8-8.9); NEUTROPHILS % (AUTO) 76.4 % (38.5-71.5); PLATELET COUNT (AUTO) 171 K/uL (152-348); RED BLOOD CELL COUNT(AUTO) 5.07 MIL/uL (4.06-5.63); RED CELL DISTRIBUTION WIDTH 13.8 % (12.1-16.2); WHITE BLOOD COUNT (AUTO) 7.4 K/uL (3.6-10.2)
[2023-07-18 07:25] LABS: CALCIUM 8.9 mg/dL (8.5-10.1); CARBON DIOXIDE 29 mmol/L (21-32); CHLORIDE 104 mmol/L (98-107); CREATININE 0.9 mg/dL (0.6-1.3); DIFFERENTIAL COMMENT 1; GLUCOSE 119 mg/dL (74-106); POTASSIUM 2.9 mmol/L (3.5-5.1); SODIUM SERUM 141 mmol/L (136-145); UREA NITROGEN, BLOOD 11 mg/dL (7-18)
[2023-07-18 07:42] LABS: ALANINE AMINOTRANSFERASE 37 U/L (16-63); ALBUMIN 3.9 g/dL (3.4-5.0); ALKALINE PHOSPHATASE 93 U/L (50-136); ASPARTATE AMINOTRANSFERASE 10 U/L (15-37); BILIRUBIN,DIRECT 0.2 mg/dL (0.0-0.2); BILIRUBIN,TOTAL 0.9 mg/dL (0.2-1.0); NT-PRO BNP 383 pg/mL (0-125); TOTAL PROTEIN, SERUM 7.8 g/dL (6.4-8.2)
[2023-07-18 07:46] VITALS: BP 156/92
[2023-07-18] MEDS: LOSARTAN POTASSIUM 50 MG TABLET PO ONE (07:46)
[2023-07-18] MEDS ORDERED: POTASSIUM CHLORIDE 20 MEQ TAB.PRT.SR ONE (08:07)
[2023-07-18] MEDS: POTASSIUM CHLORIDE 20 MEQ TAB.PRT.SR PO ONE (08:11)
[2023-07-18] MEDS ORDERED: POTASSIUM CHLORIDE 0 ML ONE (08:24)
[2023-07-18] MEDS: POTASSIUM CHLORIDE 40 MEQ in IV 1/2NS 1000 ML 1,000 ML IV STA (08:58)
[2023-07-18] MEDS ORDERED: AMLO-212 PO (10:39)
[2023-07-18] MEDS ORDERED: LOSA50TA39 PO (10:39)
[2023-07-18 12:27] VITALS: O2SAT 98
== END 2023-07-18 12:31 | disposition home or self-care (01) ==
LOC: ER 06:28
DX: I10 Essential (primary) hypertension (principal); E87.6 Hypokalemia; E78.5 Hyperlipidemia, unspecified; F17.200 Nicotine dependence, unspecified, uncomplicated; Z79.899 Other long term (current) drug therapy
CPT/HCPCS: 36415; 71045; 83735; 84484; 85025; 85730; 93005; A4606; A4663; J3480

== ENCOUNTER 2023-08-02 20:52 | Emergency (ER) | payer OTHER ==
[~2023-08-02] VITALS: Ht 170.2 cm; Wt 113.4 kg
[~2023-08-02 20:52] MED LIST changes: +AMLO-212 PO; +AMLO10TA59 PO; -ATOR20TA PO; -BENA20TA9 PO; -CLOT15CR5 TP; -DOXY-326 PO; -IBUP-1953 PO; +LOSA50TA39 PO; -ONDA4TAB11 PO; -SULF1TAB48 PO; -TRAM50TA2 PO
[2023-08-02 23:12] LABS: BASOPHILS # (AUTO) 0.1 K/UL (0.0-0.2); BASOPHILS % (AUTO) 1.1 % (0.0-2.0); EOSINOPHILS # (AUTO) 0.2 K/uL (0.0-0.7); EOSINOPHILS % (AUTO) 3.4 % (0.0-7.0); HEMATOCRIT 44.1 % (36.7-47.1); HEMOGLOBIN 15.2 g/dL (12.5-16.3); LYMPHOCYTES # (AUTO) 1.7 K/uL (0.8-4.8); LYMPHOCYTES % (AUTO) 26.5 % (20.5-51.5); MEAN CORPUSCULAR HEMOGLOBIN 31.8 uug (23.8-33.4); MEAN CORPUSCULAR HGB CONC 35 g/dL (32.5-36.3); MEAN CORPUSCULAR VOLUME 92.1 fL (73.0-96.2); MONOCYTES # (AUTO) 0.6 K/uL (0.1-1.30); MONOCYTES % (AUTO) 9.8 % (0.0-11.0); NEUTROPHILS # (AUTO) 3.7 K/uL (1.8-8.9); NEUTROPHILS % (AUTO) 59.2 % (38.5-71.5); PLATELET COUNT (AUTO) 229 K/uL (152-348); RED BLOOD CELL COUNT(AUTO) 4.78 MIL/uL (4.06-5.63); WHITE BLOOD COUNT (AUTO) 6.3 K/uL (3.6-10.2)
[2023-08-02 23:19] LABS: CREATININE 0.8 mg/dL (0.6-1.3); POTASSIUM 2.9 mmol/L (3.5-5.1)
[2023-08-02 23:23] LABS: DIFFERENTIAL COMMENT 1
[2023-08-02 23:24] LABS: ALBUMIN 3.7 g/dL (3.4-5.0); BILIRUBIN,TOTAL 0.5 mg/dL (0.2-1.0); TOTAL PROTEIN, SERUM 7.4 g/dL (6.4-8.2)
[2023-08-02] MEDS ORDERED: POTASSIUM CHLORIDE 20 MEQ TAB.PRT.SR ONE (23:41)
[2023-08-02] MEDS: POTASSIUM CHLORIDE 20 MEQ TAB.PRT.SR PO ONE (23:46)
[2023-08-02] MEDS ORDERED: CLOT15CR27 TP (23:47)
[2023-08-02] MEDS ORDERED: CLON0.1T PO (23:47)
[2023-08-03 00:29] LABS: *BILIRUBIN,URIN NEGATIVE (NEGATIVE); *BLOOD, URINE NEGATIVE (NEGATIVE); *CLARITY,URINE CLEAR (CLEAR); *COLOR,URINE YELLOW (YELLOW); *KETONES,URINE NEGATIVE (NEGATIVE); *PROTEIN,URINE NEGATIVE (NEGATIVE); *UROBILINOGEN,URINE 0.2 E.U./dl (NORMAL); LEUKOCYTE ESTERASE ,URINE NEGATIVE (NEGATIVE); NITRITE, URINE NEGATIVE (NEGATIVE); UGLUCOSE NEGATIVE (NEGATIVE)
[2023-08-03 00:42] VITALS: BP 136/89; TEMP 97.8; O2SAT 98
== END 2023-08-03 00:37 | disposition home or self-care (01) ==
LOC: ER 20:53
DX: E87.6 Hypokalemia (principal); I10 Essential (primary) hypertension; I51.7 Cardiomegaly; R94.31 Abnormal electrocardiogram [ECG] [EKG]; B37.9 Candidiasis, unspecified; G89.29 Other chronic pain; M54.9 Dorsalgia, unspecified; F17.210 Nicotine dependence, cigarettes, uncomplicated; Z90.49 Acquired absence of other specified parts of digestive tract; Z79.899 Other long term (current) drug therapy
CPT/HCPCS: 36415; 84484; 85025; 93005; A4606; A4663

== ENCOUNTER 2024-03-12 23:16 | Emergency (ER) | payer OTHER ==
[~2024-03-12 23:16] MED LIST changes: +CLON0.1T PO
== END 2024-03-13 02:56 | disposition left against medical advice (07) ==
LOC: ER 23:36
DX: R50.9 Fever, unspecified (principal); Z53.21 Procedure and treatment not carried out due to patient leaving prior to being seen by health care provider; H92.09 Otalgia, unspecified ear; R05.9 Cough, unspecified; F17.200 Nicotine dependence, unspecified, uncomplicated; Z79.899 Other long term (current) drug therapy; Z86.73 Personal history of transient ischemic attack (TIA), and cerebral infarction without residual deficits; Z98.890 Other specified postprocedural states; Z88.7 Allergy status to serum and vaccine